=== PATIENT | female | born 1985 | race Hispanic/Latino ===

== ENCOUNTER 2018-09-20 11:39 | Emergency (ER) | payer OTHER ==
[2018-09-20 13:08] VITALS: RESP 18
--- NOTE | 2018-09-20 13:08 | ED PDOC ---
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 She states she tripped down a step while carrying her 2 year old child, twisting her right ankle and collapsing on her left foot and leg, unable to get up secondary to pain. Patient reports she believes that her child blocked her stomach from getting hit, but notes having not felt the baby move when she usually does quite frequently. Otherwise, states was without complications, and denies head injury, loss of consciousness, numbness, tingling, and any medication use prior to arrival. Obgyn: Dr. Oneal at [facility] in [place] Past Medical History Reviewed: Historical Data, Nursing Documentation, Vital Signs - Medical History PMH: No Chronic Diseases - Surgical History Surgical History: No Surg Hx - Family History Family History: States: Unknown Family Hx - Social History Current smoker - smoking cessation education provided: No Alcohol: None Drugs: Denies - Immunization History Hx Tetanus Toxoid Vaccination: Yes (03/10) Hx Influenza Vaccination: No Hx Pneumococcal Vaccination: No - Home Medications Home Medications: Ambulatory Orders Medication Instructions Recorded Acetaminophen with Codeine 1 tab PO Q6 PRN #20 tab 05/10/15 [Tylenol with Codeine No. 3 300 mg-30 mg] Cephalexin [Keflex] 500 mg PO TID #21 tab 05/10/15 Ibuprofen [Motrin] 600 mg PO Q6H PRN #20 tab 05/10/15 - Allergies Allergies/Adverse Reactions: Allergies Allergy/AdvReac Type Severity Reaction Status Date / Time No Known Allergies Allergy Verified 05/10/15 22:37 Review of Systems ROS Statement: Except As Marked, All Systems Reviewed And Found Negative Musculoskeletal: Positive for: Leg Pain (left), Foot Pain (left foot, right ankle) Neurological: Negative for: Numbness (or tingling in extremities), Other (loss of consciousness) Physical Exam - Reviewed Nursing Documentation Reviewed: Yes Vital Signs Reviewed: Yes - Physical Exam Comments: GENERAL APPEARANCE: Patient is awake, alert, oriented x 3, in obvious moderate distress. Patient appears nervous and tearful. SKIN: Warm, dry; (-) cyanosis. HEAD: (-) swelling and tenderness, with no palpable bony defect. EYES: (-) conjunctival pallor, (-) scleral icterus, (-) nystagmus. ENMT: Mucous membranes moist. Nose: (-) tenderness. No oral trauma. Pharynx clear. NECK: (-) paracervical tenderness, (-) vertebral tenderness, (-) lymphadenopathy. CHEST AND RESPIRATORY: (-) chest wall tenderness. Lungs: (-) rales, (-) rhonchi, (-) wheezes; breath sounds equal bilaterally. HEART AND CARDIOVASCULAR: (-) irregularity; (-) murmur, (-) gallop. ABDOMEN AND GI: Gravid; (-) reproducible tenderness, (-) ecchymosis. BACK: (-) tenderness. LOWER EXTREMITIES: Bilateral: 2+ DP pulses, capillary refill less than 2 secon ds, neurovascular intact, no abrasions / lacerations; LLE: (+) foot swelling and tenderness to 5th metatarsal with questionable deformity; RLE: (+) diffuse swelling to right ankle with both medial and lateral malleolus tenderness, tenderness proximal to lateral malleolus NEURO AND PSYCH: Mental status as above. 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 EOMI. (-) facial asymmetry. Tongue and uvula midline. No gross sensory deficits. - Laboratory Results Result Diagrams: 09/20/18 13:45 Medical Decision Making Medical Decision Making: Time: 1220 Initial Impression: trauma s/p fall Initial Plan: --Discussed plan with patient to first have her evaluated by L&D to ensure safety of baby and then when she is cleared, XRs will be ordered. Patient verbalized agreement with treatment. 1442 Patient returned from L&D with unremarkable eval. Baby is doing well, blood work was done by them. XRs ordered by me to r/o fractures and Tylenol PO for pain 155 XRs reviewed by me: Right tibia fibula / ankle: distal fibula fracture Bilateral feet: right - normal. left - proximal fracture to 5th metatarsal Podiatry contacted, agreeable to come to ED for evaluation 1555 Discussed results with patient and explained that podiatry will evaluate her in ED. All questions answered at this time. discussed with podiatry who will come see pt 1630 xray reports as per PACS state R acute trimal fx and L 5th metatarsal fx pt seen by podiatry, pending plan 1739 Podiatry splinted bilateral legs and spoke to her OB who state they want her to come to their hospital for evaluation. Podiatry says patient needs non-emergent surgery, so she is stable for discharge and agreeable to follow up with OB as soon as possible. Verbalized understanding of return parameters. Pt with work up by L&D showing baby is doing well, pt seen and cleared by podiatry, pt is going to go to her OBGYN's hopsital at [facility] for further evaluation and care, but is otherwise medically stable and cleared for discharge from here Discussed all results, diagnosis, treatment, return precautions and f/u with pt who is understanding, in agreement and stable for dc Scribe Attestation: Documented by Haven Ortiz, acting as a scribe for Zac Carter PA-C. Provider Scribe Attestation: All medical record entries made by the Scribe were at my direction and personally dictated by me. I have reviewed the chart and agree that the record accurately reflects my personal performance of the history, physical exam, medical decision making, and the department course for this patient. I have also personally directed, reviewed, and agree with the discharge instructions and disposition. Disposition - Clinical Impression Clinical Impression: Fall (on) (from) unspecified stairs and steps, initial encounter, Fracture of fifth metatarsal bone of left foot, Trimalleolar fracture of right ankle, - Patient ED Disposition Is Patient to be Admitted: No Counseled Patient/Family Regarding: Studies Performed, Diagnosis, Need For Followup - Disposition Referrals: your OBGYN, Dr. Saxena [Other] Mariusz Rowe DPM [Staff Provider] - Disposition Time: 17:40 Condition: STABLE Additional Instructions: Return to ED for new or worsening symptoms, fever >100.4, numbness or tingling, loss of color in leg. Follow up with your OBGYN and an orthopedist/early childhood educator aide SOON POSSIBLE. Keep splints on both feet. Non weight bearing. Rest, ice and elevate. Tylenol is safe in for pain. Instructions: Medications and , Tibia Fracture, Foot Fracture (DC), Fibula Fracture Forms: [employer] (Iraqi) Print Language: SAO TOMEAN - POA Present On Arrival: None Results - Diagnostic Imaging Results Radiology Results Ankle X-Ray 09/20/18 14:43 IMPRESSION: Acute trimalleolar fractures. Foot X-Ray 09/20/18 14:43 IMPRESSION: Right Foot: There is a displaced transverse fracture through the base of the 5th metatarsal Tibia/Fibula X-Ray 09/20/18 14:43 IMPRESSION: Distal tibial/fibular fractures. No proximal osseous abnormalities identified. - Lab Results Lab Results: 09/20/18 09/20/18 13:45 13:45 WBC 12.6 H RBC 4.26 Hgb 12.6 Hct 37.4 MCV 87.7 MCH 29.5 MCHC 33.6 RDW 13.5 Plt Count 176 MPV 9.2 Neut % (Auto) 83.5 H Lymph % (Auto) 11.6 L [place] % (Auto) 4.1 Eos % (Auto) 0.6 Baso % (Auto) 0.2 Neut # (Auto) 10.5 H Lymph # (Auto) 1.5 [place] # (Auto) 0.5 Eos # (Auto) 0.1 Baso # (Auto) 0.0 Blood Type A NEGATIVE Antibody Screen Positive Antibody Identification ANTI D DUE TO RhoGAM BBK History Checked No verified bt
[2018-09-20 14:00] LABS: BASO % 0.2 % (0.0-2.0); EOS # 0.1 K/uL (0.0-0.7); EOS % 0.6 % (0.0-4.0); HEMOGLOBIN 12.6 g/dL (12.0-16.0); LYMPH # 1.5 K/uL (1.0-4.3); LYMPH % 11.6 % (20.0-40.0); MEAN CELL VOLUME 87.7 fl (81.0-99.0); MEAN CORPUSCULAR HEMOGLOBIN 29.5 pg (27.0-31.0); MEAN CORPUSCULAR HGB CONC 33.6 g/dL (33.0-37.0); MEAN PLATELET VOLUME 9.2 fl (7.2-11.7); MONO # 0.5 K/uL (0.0-0.8); MONO % 4.1 % (0.0-10.0); NEUT # 10.5 K/uL (1.8-7.0); NEUT % 83.5 % (50.0-75.0); NRBC % 0.1 % (0.0-0.0); RBC 4.26 Mil/uL (3.80-5.20); RED CELL DISTRIBUTION WIDTH 13.5 % (11.5-14.5); WHITE BLOOD COUNT 12.6 K/uL (4.8-10.8)
--- NOTE | 2018-09-20 16:38 | CP.PCM.CON ---
History of Present Illness - History of Present Illness History of Present Illness: Podiatry Consult Note for Dr. Rowe: 33 year old female patient, 37 weeks , seen and evaluated in the the ED for b/l lower extremity pain. Patient states that she was walking down steps this morning at 11am, holding her two year old, when she missed the last step and rolled her ankle. She immediately was unable to walk. Her pain is worse to right more than left. Patient is accompanied by her at bedside. She todd es nausea/vomiting/fever/shortness of breath/chest pain. PMHx: Hypothyroidism PSHx: section, tonsils ALL: NKDA Past Patient History - Past Social History Alcohol: None Drugs: Denies - PSYCHIATRIC Hx Substance Use: No - SURGICAL HISTORY Hx Surgeries: No - ANESTHESIA Hx Anesthesia: No Meds Allergies/Adverse Reactions: Allergies Allergy/AdvReac Type Severity Reaction Status Date / Time No Known Allergies Allergy Verified 05/10/15 22:37 Physical Exam - Constitutional Appears: Non-toxic, No Acute Distress - Head Exam Head Exam: ATRAUMATIC, NORMOCEPHALIC - Extremities Exam Additional comments: Bilateral lower extremity focused exam: Vascular: DP/PT pulses 2/4, CFT < 3 seconds, TG warm to warm, + 2 edema noted to right ankle circumfrentially, + 1 edema to left lateral aspect of foot Ortho: Left: Pain with palpation of left 5th metatarsal base, pain with eversion and inversion. Achilles tendon intact Right: Pain with palpation of medial malleolus, lateral malleolus, achilles tendon intact, pain with AROM, PROM. No pain with calf compression Neuro: Gross and protective sensation intact Derm: No open lesions, mild erythema to right ankle and lateral aspect of left foot, no clinical signs of infection - Neurological Exam Neurological exam: Alert, Oriented x3 - Psychiatric Exam Psychiatric exam: Normal Affect, Normal Mood Results - Vital Signs Recent Vital Signs: Last Vital Signs Temp 98.4 F 09/20/18 12:05 Pulse 90 09/20/18 12:05 Resp 18 09/20/18 12:05 BP 126/76 09/20/18 12:05 Pulse Ox 98 09/20/18 12:05 - Labs Result Diagrams: 09/20/18 13:45 Labs: Laboratory Results - last 24 hr 03/28/19 03/28/19 13:45 13:45 WBC 12.6 H RBC 4.26 Hgb 12.6 Hct 37.4 MCV 87.7 MCH 29.5 MCHC 33.6 RDW 13.5 Plt Count 176 MPV 9.2 Neut % (Auto) 83.5 H Lymph % (Auto) 11.[address] [place] % (Auto) 4.1 Eos % (Auto) 0.6 Baso % (Auto) 0.2 Neut # (Auto) 10.5 H Lymph # (Auto) 1.5 [place] # (Auto) 0.5 Eos # (Auto) 0.1 Baso # (Auto) 0.0 Blood Type A NEGATIVE Antibody Screen Positive BBK History Checked No verified bt Assessment & Plan - Assessment and Plan (Free Text) Assessment: 33 year old female patient, 37 weeks , with right trimalleolar fracture and left 5th metatarsal base fracture Plan: Patient seen and evaluated with all questions and concerns addressed Discussed patient case in length with Dr. Rowe Right ankle x-ray; acute trimalleolar fracture B/L foot x-rays; Left 5th metatarsal fracture Discussed patient's case in detail with patient's COFFEE BREAK ATTENDANT practice, [facility] group COFFEE BREAK ATTENDANT, Dr. Goyo Nance and team recommend transfer to [facility] for treatment where her COFFEE BREAK ATTENDANT team is on staff and able to treat her and baby Patient stable from podiatry standpoint for transfer to [facility] Patient placed in bilateral posterior splints Advised to remain non-weightbearing with the use of a wheelchair Discussed with COFFEE BREAK ATTENDANT team risk for DVT with immobilization Patient will need surgical intervention at this time Discussed with patient at length surgical intervention, including risks and benefits Discussed importance of icing and elevating bilateral lower extremities Discussed with patient the option for surgical intervention after she gives in 3 weeks or before based on COFFEE BREAK ATTENDANT recommendations Pain management per patients COFFEE BREAK ATTENDANT recommendations Thank you for the consult - Date & Time Date: 09/20/18 Time: 16:37
--- NOTE | 2018-09-20 16:43 | RAD ---
Date of service: 09/20/2018 PROCEDURE: Right tibia and fibula. HISTORY: Trauma COMPARISON: September 20, 2018. TECHNIQUE: Standard protocol for this study/examination. FINDINGS: Known distal tibial and fibular fractures. No proximal fractures identified. IMPRESSION: Distal tibial/fibular fractures. No proximal osseous abnormalities identified.
--- NOTE | 2018-09-20 16:43 | RAD ---
Date of service: 09/20/2018 PROCEDURE: Right ankle HISTORY: Trauma COMPARISON: September 20, 2018. TECHNIQUE: Standard protocol for this study/examination. FINDINGS: Fractures of the distal tibia and fibula. The fibular fracture is oblique, above the ankle mortise. Major fracture fragments are anatomically aligned. Distal tibial fracture is comminuted involving medial and posterior malleolar regions. There intra-articular components to the fractures. Soft tissue swelling attests to the acuity of the fracture. IMPRESSION: Acute trimalleolar fractures.
--- NOTE | 2018-09-20 16:45 | RAD ---
Date of service: 09/20/2018 PROCEDURE: Bilateral Feet Radiographs. HISTORY: COMPARISON: None. TECHNIQUE: 6 views obtained. FINDINGS: BONES: Right Foot: There is a displaced transverse fracture through the base of the 5th metatarsal Left Foot: Normal. No fracture. JOINTS: Right Foot: Normal. No osteoarthritis. Left Foot: Normal. No osteoarthritis. SOFT TISSUES: Right Foot: Normal. Left Foot: Normal. OTHER FINDINGS: None. IMPRESSION: Right Foot: There is a displaced transverse fracture through the base of the 5th metatarsal
[2018-09-20 17:56] VITALS: TEMP 98.1
[2018-09-20 22:10] VITALS: BP 126/78; PULSE 101; O2SAT 97
== END 2018-09-20 18:05 | disposition home or self-care (01) ==
LOC: H.EROB2 11:39 → H.L&D 13:03 → H.EROB2 18:05
DX: O26.93 Pregnancy related conditions, unspecified, third trimester (principal); S82.851A Displaced trimalleolar fracture of right lower leg, initial encounter for closed fracture; S82.852A Displaced trimalleolar fracture of left lower leg, initial encounter for closed fracture; Z00.8 Encounter for other general examination; Z3A.37 37 weeks gestation of pregnancy; W10.9XXA Fall (on) (from) unspecified stairs and steps, initial encounter; O99.283 Endocrine, nutritional and metabolic diseases complicating pregnancy, third trimester; E03.9 Hypothyroidism, unspecified